=== PATIENT | female | born 1985 | race African-American/Black ===

== ENCOUNTER 2016-12-21 02:50 | Emergency (ER) | payer OTHER ==
[~2016-12-21] VITALS: Ht 175.3 cm; Wt 99.8 kg
[~2016-12-21 02:50] MED LIST: AMOXICILLIN 50500 MG PO; PROAIR HFA8.5 GM INH; TESSALON PERLE100 MG PO
[2016-12-21 04:06] LABS: ABSOLUTE NEUTROPHILS 7.2 thou/uL (1.4-8.2); BASOPHILS 0.6 % (0.0-2.0); EOSINOPHILS 1.7 % (0.0-3.0); HEMATOCRIT 38.8 % (37.0-47.0); LYMPHOCYTES 27.6 % (24.0-44.0); MCH 29.6 pg (26.0-34.0); MCHC 33.4 g/dL (28.0-37.0); MCV 88.6 fL (80.0-100.0); MONOCYTES 6.4 % (1.0-8.0); PLATELET COUNT 415 thou/uL (150-400); POLYS 63.7 % (36.0-66.0); RBC 4.38 mil/uL (4.20-5.00); RDW 14.2 % (10.5-14.5); WBC 11.4 thou/uL (4.0-11.0)
[2016-12-21 04:10] LABS: URINE BILIRUBIN NEGATIVE (Negative); URINE BLOOD NEGATIVE (Negative); URINE COLOR YELLOW; URINE GLUCOSE-RANDOM* NEGATIVE (Negative); URINE KETONES TRACE (Negative); URINE LEUKOCYTES-REFLEX NEGATIVE (Negative); URINE PROTEIN (DIPSTICK) 2+ (Negative); URINE SPECIFIC GRAVITY >= 1.030 (1.003-1.035)
[2016-12-21 04:11] LABS: MANUAL DIFF NO
[2016-12-21 04:15] LABS: CASTS None Seen /LPF (None Seen); SQUAMOUS >10 Many /LPF (0-3); URINE RBC None Seen /HPF (0-2); URINE WBC-REFLEX None Seen /HPF (0-5)
[2016-12-21 04:16] LABS: CRYSTALS None Seen /LPF (None Seen)
[2016-12-21 04:20] LABS: CREATININE 0.6 mg/dL (0.6-1.3); POTASSIUM 3.5 mmol/L (3.5-5.1)
[2016-12-21 04:24] LABS: TOTAL BILIRUBIN 0.4 mg/dL (<0.1-1.0); TOTAL PROTEIN 7.1 g/dL (6.4-8.2)
[2016-12-21] MEDS ORDERED: PEPCID20 MG PO (05:21)
[2016-12-21] MEDS ORDERED: CARAFATE 1 GM TA1 G1 PO (05:21)
[2016-12-21 05:26] VITALS: BP 109/59
== END 2016-12-21 05:28 | disposition home or self-care (01) ==
LOC: ER 02:50
PROVIDERS: Emergency Medicine
DX: O26.892 Other specified pregnancy related conditions, second trimester (principal); Z3A.20 20 weeks gestation of pregnancy; K29.60 Other gastritis without bleeding